=== PATIENT | male | born 1975 | race Caucasian/White ===

== ENCOUNTER → 2019-05-09 | Outpatient (CLI) | payer OTHER ==
--- NOTE | 2019-05-09 10:53 | 2DMMODE ---
[place] [address] 2 D/M-MODE ECHOCARDIOGRAM Name: EARLE ROQUE Room: [facility]#: [id number] Admission: 05/09/19 Attend Phys: Espinoza Hernandez, Discharge: Date of : 75 Date of Service: 05/09/19 1052 Report #: [id number] THIS REPORT FOR: cc: Noel Fonseca Reuel M. DO Blick, David R. MD [facility] ~ APPROVED REPORT Study performed: 05/09/2019 07:51:20 EXAM: Comprehensive 2D, Doppler, and color-flow Echocardiogram Patient Location: Out-Patient BSA: 2.27 HR: 92 bpm BP: 115/62 mmHg Other Information Study Quality: Good Indications CAD Chest Pain 2D Dimensions IVSd: 9.08 (7-11mm) LVOT Diam: 20.61 (18-24mm) LVDd: 48.78 mm PWd: 8.26 (7-11mm) Ascending Ao: 29.70 (22-36mm) LVDs: 28.52 (25-40mm) Aortic Root: 29.84 mm Volumes Left Atrial Volume (Systole) LA ESV Index: 11.40 mL/m2 Aortic Valve AoV Peak Phillip.: 1.36 m/s AO Peak Gr.: 7.36 mmHg LVOT Max P.95 mmHg AO Mean Gr.: 3.81 mmHg LVOT Mean P.17 mmHg LVOT Max V: 1.11 m/s AO V2 VTI: 21.70 cm LVOT Mean V: 0.66 m/s RONALD (VTI): 2.87 cm2 LVOT V1 VTI: 18.65 [place] [address] 2 D/M-MODE ECHOCARDIOGRAM Name: EARLE ROQUE Room: [facility]#: [id number] Admission: 05/09/19 Attend Phys: Espinoza Hernandez, Discharge: Date of : 75 Date of Service: 05/09/19 1052 Report #: [id number] E/A Ratio: 0.80 MV Decel. Time: 221.70 ms MV E Max Phillip.: 0.67 m/s MV PHT: 64.29 ms MVA (PHT): 3.42 cm2 TDI E/Lateral E': 4.79 E/Medial E': 8.38 Medial E' Phillip.: 0.08 m/s Lateral E' Phillip.: 0.14 m/s Pulmonary Valve PV Peak Phillip.: 1.03 m/s PV Peak Gr.: 4.27 mmHg Tricuspid Valve RAP Estimate: 5.00 mmHg TR Peak Gr.: 23.43 mmHg RVSP: 28.43 mmHg PA Pressure: 28.43 mmHg Left Ventricle The left ventricle is normal size. There is normal LV segmental wall motion. There is normal left ventricular wall thickness. Left ventricular systolic function is normal. The left ventricular ejection fraction is within the normal range. LVEF is 60-65%. Grade I - abnormal relaxation pattern. Right Ventricle The right ventricle is normal size. The right ventricular systolic function is normal. Atria The left atrium size is normal. The right atrium size is normal. Aortic Valve The aortic valve is normal in structure. No aortic regurgitation is present. There is no aortic valvular stenosis. Mitral Valve The mitral valve is normal in structure. There is no mitral valve regurgitation noted. No evidence of mitral valve stenosis. Tricuspid Valve The tricuspid valve is normal in structure. Mild [place] [address] 2 D/M-MODE ECHOCARDIOGRAM Name: EARLE ROQUE Room: [facility]#: [id number] Admission: 05/09/19 Attend Phys: Espinoza Hernandez, Discharge: Date of : 75 Date of Service: 05/09/19 1052 Report #: [id number] Pulmonic Valve The pulmonary valve is normal in structure. There is no pulmonic valvular regurgitation. Great Vessels The aortic root is normal in size. IVC is normal in size and collapses >50% with inspiration. Pericardium There is no pericardial effusion. <Conclusion> Left ventricular systolic function is normal. The left ventricular ejection fraction is within the normal range. <ELECTRONICALLY SIGNED> By: Earle Armstrong MD, FACC 05/09/191051 51 51 Earle Armstrong MD, FACC /INF
--- NOTE | 2019-05-09 17:12 | CARDNUC ---
[place] [address] CARDIAC NUCLEAR IMAGING REPORT Name: EARLE ROQUE Room: [facility]#: [id number] Admission: 05/09/19 Attend Phys: Espinoza Hernandez, Discharge: Date of : 75 Date of Service: 05/09/19 1711 Report #: [id number] THIS REPORT FOR: cc: Noel Fonseca Reuel M. DO Liston, Michael J. MD [facility] ~ APPROVED REPORT Imaging Protocol: Stress Tc-99mm Only Study performed: 05/09/2019 10:00:00 Indication: Dyspnea, Chest pain, tachycardia Patient Location: Out-Patient Stress Tech: Abimbola Gee Stress Nurse: Tracy Solis RN Ht: 5 ft 11 in Wt: 238 lbs BSA: 2.27 m2 BMI: 33.19 Medical History Medical History: Hyperlipidemia, HTN, Diabetic Insulin Medications: atorvastatin, glimeperide, insulin, asa-81, ntg Allergies: penicillin Cardiac Risk Factors: HTN, Hyperlipidemia, Diabetes (insulin), Tobacco History (Current/Recent) Exercise History: Physically active Exercise Stress At peak stress, the patient was injected intravenously with 29.6mCi of Tc-99m Sestamibi. Time of stress injection: 09:45 Administration Route: IV Administration Site: Right Wrist Heart Rate at time of stress injection: 160 bpm. Gated Stress SPECT was performed 30 minutes after stress injection. The images were gated to evaluate regional wall motion and calculate left ventricular ejection fraction. Prone imaging was performed. Stress Test Details Stress Test: Exercise stress testing was performed using [place] [address] CARDIAC NUCLEAR IMAGING REPORT Name: EARLE ROQUE Room: [facility]#: [id number] Admission: 05/09/19 Attend Phys: Espinoza Hernandez, Discharge: Date of : 75 Date of Service: 05/09/19 1711 Report #: [id number] HR Max Heart Rate (APMHR): 177 bpm Resting HR: 96 bpm Target HR (85% APMHR): 150 bpm Max HR Achieved: 160 bpm % of APMHR: 90 Recovery HR: 115 bpm HR response to stress: Normal HR response to stress BP Resting BP: 116/82 mmHg Max BP: 193/95 mmHg Recovery BP: 104/58 mmHg BP response to stress: Normal blood pressure response to stress. ECG Resting ECG: Sinus Rhythm Stress ECG: Sinus Tachycardia ST Change: None Arrhythmia: None Recovery ECG: Sinus Rhythm Recovery ST Change: None Recovery Arrhythmia: None Clinical Reason for Termination: Fatigue, Dyspnea Exercise duration: 11 min sec Exercise capacity: 13.45 METs Functional Aerobic Impairment 90% The patient exhibited good exercise tolerance on the standard [place] protocol. There were no symptoms to suggest angina. Stress ECG Conclusion The baseline 12-lead EKG shows sinus rhythm without significant ST segment or T wave abnormality. EKGs obtained during and post exercise showed sinus rhythm and sinus tachycardia with no significant ST segment or T wave changes when compared to baseline. There were no stress-induced arrhythmias. Study Quality Study: Good Artifact: No artifact Study Data Post stress, the left ventricular ejection was 54%[place] [address] CARDIAC NUCLEAR IMAGING REPORT Name: EARLE ROQUE Room: [facility]#: [id number] Admission: 05/09/19 Attend Phys: Espinoza Hernandez, Discharge: Date of : 75 Date of Service: 05/09/19 1711 Report #: [id number] Perfusion Perfusion images obtained post exercise showed uniform uptake of the radioisotope throughout the myocardium with no defect to just infarct or ischemia. Wall Motion Global LV systolic function is normal. There is a septal wall motion abnormality of uncertain significance. Nuclear Conclusion ECG Findings: negative for ischemia Clinical Findings: negative for ischemia Nuclear Findings: negative for ischemia Exercise Capacity: normal Left Ventricular Function: preserved Risk Study: low Perfusion images show no defect to suggest infarct or ischemia. Global LV systolic function appears preserved. This is a low risk study. <Conclusion> The baseline 12-lead EKG shows sinus rhythm without significant ST segment or T wave abnormality. EKGs obtained during and post exercise showed sinus rhythm and sinus tachycardia with no significant ST segment or T wave changes when compared to baseline. There were no stress-induced arrhythmias. <ELECTRONICALLY SIGNED> By: Cornell Soto MD, FACC 05/09/191710 10 10 Cornell Soto MD, FACC /INF
== END ==
LOC: M.CRD 04-24 08:00
DX: I36.1 Nonrheumatic tricuspid (valve) insufficiency (principal); E11.9 Type 2 diabetes mellitus without complications; E78.2 Mixed hyperlipidemia; Z82.49 Family history of ischemic heart disease and other diseases of the circulatory system; Z79.4 Long term (current) use of insulin; Z79.899 Other long term (current) drug therapy; F17.200 Nicotine dependence, unspecified, uncomplicated